=== PATIENT | male | born 1995 | race Caucasian/White ===

== ENCOUNTER 2018-01-10 11:52 | Emergency (ER) | payer OTHER ==
[~2018-01-10] VITALS: Ht 172.7 cm; Wt 74.8 kg
[2018-01-10] MEDS ORDERED: CITA20 PO (12:31)
[2018-01-10] MEDS ORDERED: AMPDEX10CR PO (12:31)
== END 2018-01-10 14:59 | disposition home or self-care (01) ==
LOC: ER 11:52
DX: Z77.21 Contact with and (suspected) exposure to potentially hazardous body fluids (principal); F41.9 Anxiety disorder, unspecified; Z79.899 Other long term (current) drug therapy
CPT/HCPCS: 84450; 86317; 90632; 99283-25; G0010